=== PATIENT | male | born 2000 | race African-American/Black ===

== ENCOUNTER 2019-09-07 06:26 | Emergency (ER) | payer SELFPAY ==
[~2019-09-07] VITALS: Ht 175.3 cm; Wt 65.8 kg
[2019-09-07] MEDS ORDERED: AZITHROMYCIN 500 MG TABLET PO ONE (07:15)
[2019-09-07] MEDS ORDERED: CEFTRIAXONE SODIUM 250 MG/VIAL IM ONE (07:15)
[2019-09-07 07:24] VITALS: BP 120/67
[2019-09-09 05:11] LABS: NEISSERIA GONORRHOEAE NAA Positive (Negative)
== END 2019-09-07 07:25 | disposition home or self-care (01) ==
LOC: ER 06:26
DX: A54.09 Other gonococcal infection of lower genitourinary tract (principal); A56.8 Sexually transmitted chlamydial infection of other sites
CPT/HCPCS: 87491; 87591; 96372; 99283; J0696

== ENCOUNTER 2023-01-22 21:33 | Emergency (ER) | payer SELFPAY ==
[~2023-01-22] VITALS: Ht 167.6 cm; Wt 63.5 kg
[2023-01-22 22:41] VITALS: BP 129/75; O2SAT 99
[2023-01-22 23:34] LABS: CLARITY URINE CLEAR (CLEAR); COLOR URINE YELLOW (YELLOW); GLUCOSE URINE NEGATIVE (NEGATIVE); KETONES URINE 1+ (NEGATIVE); LEUKOCYTE ESTERASE URINE 2+ (NEGATIVE); NITRITE URINE NEGATIVE (NEGATIVE); OCCULT BLOOD URINE NEGATIVE (NEGATIVE); PH URINE 6.5 (4.5-8.0); PROTEIN URINE NEGATIVE (NEGATIVE); SPECIFIC GRAVITY URINE 1.018 (1.005-1.030)
[2023-01-23] MEDS ORDERED: CEFTRIAXONE SODIUM 500 MG/VIAL IM ONE (00:15)
[2023-01-23] MEDS ORDERED: LIDOCAINE HCL/PF 1% 10 MG/ML 5ML VIAL INFIL ONE (00:15)
[2023-01-23] MEDS ORDERED: DOXY-456 PO (00:44)
[2023-01-23 01:40] VITALS: PULSE 55; RESP 18; TEMP 98.2
[2023-01-23 04:53] LABS: RBC URINE 0-2 /hpf (0-2); SQUAMOUS EPITHELIAL CELL URINE NONE SEEN /lpf (RARE/1+); WBC URINE 15-25 /hpf (0-2)
[2023-01-23 04:54] LABS: BACTERIA URINE NONE SEEN
[2023-01-27 04:07] LABS: CHLAMYDIA TRACHOMATIS NAA Negative (Negative); NEISSERIA GONORRHOEAE NAA Positive (Negative)
== END 2023-01-23 01:42 | disposition home or self-care (01) ==
LOC: ER 21:33
DX: N34.2 Other urethritis (principal)
CPT/HCPCS: 87491; 87591; 81003; 87086; 99283; 96372; J0696; J3490; Z7610